=== PATIENT | female | born 1980 | race Caucasian/White ===

== ENCOUNTER 2018-05-24 08:21 | Emergency (ER) | payer MEDICAID ==
[~2018-05-24] VITALS: Wt 65.4 kg
[~2018-05-24 08:21] MED LIST: FERR-55 PO; PREN-39
[2018-05-24] MEDS ORDERED: SODIUM CHLORIDE 0.9% 1L BAG IV* STA (09:15)
[2018-05-24] MEDS ORDERED: ONDANSETRON 4 MG INJ IV STA ×2 (09:45→11:38)
[2018-05-24] MEDS ORDERED: KETOROLAC 30 MG INJ IV STA (11:07)
[2018-05-24] MEDS ORDERED: KETOROLAC 30 MG INJ ONE (11:08)
[2018-05-24] MEDS ORDERED: ONDA4TAB14 PO (12:40)
[2018-05-24] MEDS ORDERED: IBUP-1542 PO (12:40)
[2018-05-24] MEDS ORDERED: D-ME473S2 PO (12:40)
[2018-05-24 12:47] VITALS: BP 102/67; PULSE 94; RESP 16
[2018-05-24] MEDS ORDERED: ACETAMINOPHEN 500 MG TAB PO STA (12:52)
[2018-05-24] MEDS ORDERED: POTASSIUM CHLORIDE (SR) 10 MEQ TAB PO ONE (13:00)
--- NOTE | 2018-05-24 18:37 | ERD ---
ER Documentation Chief Complaint Chief Complaint FEVER AND CONGESTION SINCE YESTERDAY HPI 37-year-old female patient with no significant past medical history presents to ED complaining of fever, cough, congestion, chest pain, abdominal pain. Patient reports that this started yesterday. States that she has a productive cough. Denies any nausea, vomiting, diarrhea, neck stiffness. She reports that her chest pain is different from her body aches. Patient describes her pain is achy and rates it a 8 out of 10. Reports that she has not taking any medications at home. ROS All systems reviewed and are negative except as per history of present illness. Medications Home Meds Active Scripts Ibuprofen* (Motrin*) 600 Mg Tab, 600 MG PO Q6, #30 TAB Prov:KAYCEE LIN PA-C 05/24/18 Ondansetron (Ondansetron Odt) 4 Mg Tab.rapdis, 4 MG PO Q6H PRN for NAUSEA AND/OR VOMITING, #10 TAB Prov:KAYCEE LIN PA-C 05/24/18 Dextromethorphan Hb-Promethazine Hcl* (Promethazine DM* Syrup) 473 Ml Syrup, 5 ML PO Q6 PRN for COUGH, #120 ML Prov:KAYCEE LIN PA-C 05/24/18 Reported Medications Ferrous Sulfate* (Ferrous Sulfate*) 325 Mg Tablet, 325 MG PO DAILY 12/17/10 Vits W-Ca,Fe,Fa(<1MG) ( Vitamins) 1 Tab Tablet, DAILY 12/17/10 Allergies Allergies: Coded Allergies: No Known Allergy (Verified Allergy, Mild, 12/17/10) PMhx/Soc Medical and Surgical Hx: pt denies Medical Hx, pt denies Surgical Hx Hx Alcohol Use: No Hx Substance Use: No Hx Tobacco Use: No Smoking Status: Never smoker FmHx Family History: No diabetes, No coronary disease Physical Exam Vitals Vital Signs Date Temp Pulse Resp B/P (MAP) Pulse Ox O2 O2 Flow FiO2 Time Delivery Rate 05/24/18 99.9 13:06 05/24/18 100.1 94 16 102/67 98 Room Air 12:47 (79) 05/24/18 Nasal 09:45 Cannula 05/24/18 100.4 132 18 118/82 99 08:25 (94) Physical Exam Const: [id number]-[id number]-ysiikpyqa, well-nourished. In no acute distress. Head: Atraumatic, normocephalic Eyes: Normal Conjunctiva without injection. No purulent discharge. PERRL. EOMI ENT: Normal external ear. Ear canal without erythema. Tympanic membrane pearly moses without effusion or bulging. Nasal canal clear with normal turbinates. Moist oropharynx without tonsillar exudates. Non-erythematous pharynx. Uvula midline. No drooling. No trismus. Neck: Full range of motion. No meningismus. No cervical lymphadenopathy. Resp: Clear to auscultation bilaterally. No wheezing, rhonchi, rales, or crackles. No accessory muscle use. No retractions. Cardio: Regular rate and rhythm. No murmurs, rubs or gallops. Abd: Soft, non tender, non distended. Normal bowel sounds. No palpable masses. No rebound tenderness. No guarding. Skin: No petechiae or rashes Back: No midline tenderness. No CVA tenderness. Ext: No cyanosis, or edema. Neur: Awake and alert. Psych: Normal Mood and Affect Results 24 hrs Laboratory Tests Test 05/24/18 09:40 05/24/18 09:43 White Blood Count 7.4 10^3/ul Red Blood Count 4.26 10^6/ul Hemoglobin 11.0 g/dl Hematocrit 35.3 % Mean Corpuscular Volume 82.9 fl Mean Corpuscular Hemoglobin 25.8 pg Mean Corpuscular Hemoglobin Concent 31.2 g/dl Red Cell Distribution Width 18.2 % Platelet Count 305 10^3/UL Mean Platelet Volume 9.6 fl Immature Granulocytes % 0.300 % Neutrophils % 76.8 % Lymphocytes % 14.1 % Monocytes % 8.7 % Eosinophils % 0.0 % Basophils % 0.1 % Nucleated Red Blood Cells % 0.3 /100WBC Immature Granulocytes # 0.020 10^3/ul Neutrophils # 5.7 10^3/ul Lymphocytes # 1.0 10^3/ul Monocytes # 0.6 10^3/ul Eosinophils # 0.0 10^3/ul Basophils # 0.0 10^3/ul Nucleated Red Blood Cells # 0.0 10^3/ul Prothrombin Time 12.1 Sec Prothrombin Time Ratio 0.9 INR International Normalized Ratio 0.89 Activated Partial Thromboplast Time 31.1 Sec Urine Color YELLOW Urine Clarity SLIGHTLY CLOUDY Urine pH 5.0 Urine Specific [place] 1.019 Urine Ketones TRACE mg/dL Urine Nitrite NEGATIVE mg/dL Urine Bilirubin NEGATIVE mg/dL Urine Urobilinogen NEGATIVE mg/dL Urine Leukocyte Esterase NEGATIVE Yasmine/ul Urine Microscopic RBC 52 /HPF Urine Microscopic WBC 5 /HPF Urine Bacteria FEW /HPF Urine Mucus MANY /HPF Urine Hemoglobin 2+ mg/dL Urine Glucose NEGATIVE mg/dL Urine Total Protein 1+ mg/dl Sodium Level 146 mmol/L Potassium Level 3.2 mmol/L Chloride Level 102 mmol/L Carbon Dioxide Level 26 mmol/L Anion Gap 18 Blood Urea Nitrogen 7 mg/dl Creatinine 0.63 mg/dl Est Glomerular Filtrat Rate mL/min > 60 mL/min Glucose Level 117 mg/dl Calcium Level 9.1 mg/dl Total Bilirubin 0.0 mg/dl Direct Bilirubin 0.00 mg/dl Indirect Bilirubin 0.0 mg/dl Aspartate Amino Transf (AST/SGOT) 24 IU/L Alanine Aminotransferase (ALT/SGPT) 23 IU/L Alkaline Phosphatase 91 IU/L Creatine Kinase 65 IU/L Creatine Kinase Index 0.3 Creatinine Kinase MB (Mass) < 0.22 ng/ml Troponin I < 0.012 ng/ml Total Protein 8.6 g/dl Albumin 4.4 g/dl Globulin 4.20 g/dl Albumin/Globulin Ratio 1.04 Lipase 103 U/L POC Venous Lactate 1.5 mmol/L Current Medications Medications Dose Sig/Gia Start Time Status Last (Trade) Ordered Route PRN Stop Time Admin Dose Reason Admin Sodium 1,960 ml BOLUS OVER 2 05/24/18 DC 05/24/18 Chloride HOURS STAT 09:15 09:36 (NS) IV* 05/24/18 09:19 Ondansetron 4 mg ONCE STAT 05/24/18 DC 05/24/18 HCl (Zofran IV 09:45 09:52 Inj) 05/24/18 09:46 Ketorolac 30 mg ONCE STAT 05/24/18 DC 05/24/18 Tromethamine IV 11:07 11:09 (Toradol) 05/24/18 11:08 Ketorolac 30 mg STK-MED 05/24/18 DC Tromethamine ONCE .ROUTE 11:08 (Toradol) 05/24/18 11:09 Ondansetron 4 mg ONCE STAT 05/24/18 DC 05/24/18 HCl (Zofran IV 11:38 11:42 Inj) 05/24/18 11:39 Potassium 30 meq ONCE ONCE 05/24/18 DC 05/24/18 Chloride PO 13:00 12:58 (Klor-Con 10) 05/24/18 13:01 500 mg ONCE STAT 05/24/18 DC 05/24/18 Acetaminophen PO 12:52 12:58 (Tylenol 05/24/18 12:54 Tab) Procedures/MDM 37-year-old female patient with no significant past medical history presents to ED complaining of fever, congestion, abdominal pain, chest pain. Patient has a low-grade fever of 100.4. Patient is tachycardic at 132. Patient meets SIRS criteria, therefore a sepsis records was ordered to evaluate patient. A CBC, CMP, lipase, troponin, EKG, chest x-ray, UA, urine , total CK, MB was ordered to further evaluate patient. Zofran, Toradol, normal saline to patient with improvement of her symptoms. CBC: No leukocytosis. No e/o of systemic infection. Hbg 11.0 CMP: No e/o severe acidosis, alkalosis, renal failure, diabetic ketoacidosis, liver disease. Potassium 3.2 - 30 meq K-dur given to patient. Lipase within normal limits. Urine: No leukocyte esterase, no nitrites, 2+ hematuria. Lactate 1.5 Troponin <0.012 EKG reviewed and interpreted by Dr. Collins Rate/Rhythm: [114 bpm, Normal Sinus Rhythm] No ectopy, no ST elevations, normal axis. QRS, ST, T-waves: [No changes consistent w/ acute ischemia] Impression: [No evidence of ischemia or arrhythmia] Patient symptoms are likely secondary to viral etiology - appropriate to treat patient's symptoms. X-rays shows no evidence of pneumonia, pneumothorax, pleural effusion. Low suspicion for acute myocardial infarction, pneumothorax, pneumonia, cardiac tamponade, Lzimb-Txtqflxfy-Nsrgk Syndrome, Brugada Syndrome, pulmonary embolism, AAA, aortic dissection, thoracic aortic dissection, endocarditis, myocarditis, pericarditis, cocaine-related ischemia, Boerhaave's syndrome, cardiac dysrhythmias,meningitis, intracranial bleed, seizure, stroke, TIA or other emergent conditions. Diagnosis: Cough, Body Aches Discharge medications: Ibuprofen, Zofran, Promethazine DM Follow up with primary care physician in 1-2 days. Instructed patient to return to the ED sooner for any worsening symptoms. Patient's questions were answered. Patient is hemodynamically stable. Patient understood and agreed with discharge plan. Patient discharged stable. Disclaimer: Inadvertent spelling and grammatical errors are likely due to EHR/dictation software use and do not reflect on the overall quality of patient care. Also, please note that the electronic time recorded on this note does not necessarily reflect the actual time of the patient encounter. Departure Diagnosis: Primary Impression: Cough Additional Impression: Body aches Condition: Stable Patient Instructions: Viral Syndrome (Adult), Uri, Viral, No Abx (Adult) [facility] Usted se veras hecho un examen mdico de control que le indica que no est en omero condicin que requiera tratamiento urgente en el Departamento de Emergencia. Un estudio ms profundo y el tratamiento de antoine condicin pueden esperar sin ningn riesgo hasta que usted sea atendida/o en el consultorio de antoine mdico o omero clnica. Es responsabilidad suya arreglar omero franko para el seguimiento del devon. MANEJO DE CONDICIONES NO URGENTES EN EL FUTURO 1) Si usted tiene un mdico de atencin primaria: Usted debera llamar a antoine mdico de atencin primaria antes de venir al departamento de emergencia. Despus de las horas de consultorio, antoine doctor o antoine asociado/a est disponible por telfono. El mdico o enfermero de mally en el servicio telefnico puede asesorarle por solis medio para atender el problema, o devon contrario se puede programar omero franko. 2) Si usted no tiene un mdico de atencin primaria: Llame al mdico o clnica de referencia que aparece abajo rachel las horas de consultorio para hacer omero franko para que le vean. CLINICAS: [facility] [phone] [address] [facility] [phone] [facility] [phone] [facility]. [facility] [phone] [facility] [phone] [facility]. [phone] [facility] () Usted se veras hecho un examen mdico de control que le indica que no est en omero condicin que requiera tratamiento urgente en el Departamento de Emergencia. Un estudio ms profundo y el tratamiento de antoine condicin pueden esperar sin ningn riesgo hasta que usted sea atendida/o en el consultorio de antoine mdico o omero clnica. Es responsabilidad suya arreglar omero franko para el seguimiento del devon. MANEJO DE CONDICIONES NO URGENTES EN EL FUTURO 1) Si usted tiene un mdico de atencin primaria: Usted debera llamar a antoine mdico de atencin primaria antes de venir al departamento de emergencia. Despus de las horas de consultorio, antoine doctor o antoine asociado/a est disponible por telfono. El mdico o enfermero de mally en el servicio telefnico puede asesorarle por solis medio para atender el problema, o devon contrario se puede programar omero franko. 2) Si usted no tiene un mdico de atencin primaria: Llame al mdico o condado institucions de referencia que aparece abajo rachel las horas de consultorio para hacer omero franko para que le vean. SI USTED NO PUEDE PAGAR PARA JASWINDER UN MEDICO puede ir a: [facility] [address] [place] [address] [facility] [address] [place] [address] [facility] [address] [place] [address] PARA [facility] [address] [place], [place] [id number] Additional Instructions: Llame al doctor MAANA y sharon omero FRANKO PARA DENTRO DE 2-3 WILKINSON.Dgale a la secretaria que nosotros le instruimos hacer esta franko.Avise o llame si antoine condicin se empeora antes de la franko. Regresa aqui si peor o no mejor. KAYCEE LIN PA-C May 24, 2018 18:37
== END 2018-05-24 13:07 | disposition home or self-care (01) ==
LOC: FTE 08:21
DX: R05 Cough (principal); R07.9 Chest pain, unspecified
CPT/HCPCS: 71045; 80053; 81001; 82550; 82553; 83605; 83690; 84484; 85025; 85610; 85730; 87040; 87086; 87400; 93005; J1885; J2405; J7030; Z7610; 36415; 96361; 96374; 96375; 96376